=== PATIENT | male | born 1960 | race Hispanic/Latino ===

== ENCOUNTER 2019-10-26 11:36 | Emergency (ER) | payer OTHER ==
[2019-10-26] MEDS ORDERED: ACETAMINOPHEN-CODEINE 300/30MG TAB ONE (12:15)
== END 2019-10-26 13:17 | disposition home or self-care (01) ==
LOC: EDH 11:36
DX: M79.604 Pain in right leg (principal); E11.9 Type 2 diabetes mellitus without complications; I10 Essential (primary) hypertension; E78.00 Pure hypercholesterolemia, unspecified; K21.9 Gastro-esophageal reflux disease without esophagitis
CPT/HCPCS: 29505; 73552; 73562

== ENCOUNTER → 2021-08-20 | Outpatient (CLI) | payer BC ==
[~2021-08-20] MED LIST: ACET-2743 PO; CYCL10TA16 PO; FENO160T16 PO; GABA-529 PO; HYDR12.54 PO; LOSA100T58 PO; METF-444 PO; METO25TA6 PO; NAPR-1023 PO; OMEG-148 PO; OMEP40CA21 PO; SENN-141 PO; SIMV-43 PO; TRAM50TA4 PO; VITA1TAB22 PO
== END | disposition home or self-care (01) ==
LOC: RAH 13:41
PROVIDERS: ATTEND Orthopaedic Surgery Sports Medicine
DX: M17.11 Unilateral primary osteoarthritis, right knee (principal)
CPT/HCPCS: 73700

== ENCOUNTER 2021-08-25 07:30 | Observation (INO) | payer BC ==
[2021-08-22 08:00] VITALS: BP 150/84
[2021-08-22 08:14] LABS: BASOPHILS % (AUTO) 0.7 % (0.0-5.0); EOSINOPHILS % (AUTO) 3.1 % (0.0-8.0); HEMATOCRIT 39.3 % (42-54); LYMPHOCYTES % (AUTO) 21.6 % (21.0-51.0); MEAN CORPUSCULAR HEMOGLOBIN 28.9 pg (27.0-33.0); MEAN CORPUSCULAR HGB CONC 32.3 g/dL (32.0-36.0); MEAN CORPUSCULAR VOLUME 89.3 fL (79-99); MONOCYTES % (AUTO) 11.8 % (3.0-13.0); NEUTROPHILS % (AUTO) 62.3 % (40.0-77.0); PLATELET COUNT (AUTO) 205 K/uL (130-400); WHITE BLOOD COUNT (AUTO) 4.2 K/uL (4.8-10.8)
[2021-08-22 08:16] LABS: APPEARANCE,URINE Clear (CLEAR); BILIRUBIN,URINE Negative (NEGATIVE); COLOR,URINE Yellow (YELLOW); GLUCOSE, URINE (UA) Negative (NEGATIVE); KETONES,URINE Negative (NEGATIVE); LEUKOCYTE ESTERASE ,URINE Negative (NEGATIVE); NITRATE,URINE Negative (NEGATIVE); OCCULT BLOOD,URINE Negative (NEGATIVE); PH,URINE 8.5 (5.0-8.0); PROTEIN,URINE Negative (NEGATIVE); UROBILINOGEN,URINE 0.2 mg/dL (0.2-1.0)
[2021-08-22 08:28] LABS: INR 0.97 (0.85-1.15); PROTHROMBIN TIME 10.6 SEC (9.6-11.6)
[2021-08-25] VITALS (23 sets, daily range): BP systolic 125–181; BP diastolic 59–99
[~2021-08-25] VITALS: Ht 167.6 cm; Wt 79.1 kg
[~2021-08-25 07:30] MED LIST changes: -OMEG-148 PO
[2021-08-25] MEDS ORDERED: CEFAZOLIN SODIUM 1 GM VIAL IVP ONE (08:00)
[2021-08-25] MEDS ORDERED: CEFAZOLIN SODIUM 1 GM VIAL ONE (11:02)
[2021-08-25] MEDS ORDERED: 0.9%NACL 1000ML 1,000 ML IV ONE (11:03)
[2021-08-25] MEDS ORDERED: HYDROMORPHONE 1 MG INJ ONE (13:34)
[2021-08-25] MEDS ORDERED: FAMOTIDINE 20MG VIAL IV ONE (13:34)
[2021-08-25] MEDS ORDERED: GLYCOPYRROLATE 1 MG/5 ML SYRINGE ONE (13:35)
[2021-08-25] MEDS ORDERED: ROCURONIUM 10MG/1ML SYR 10 MG/ML ML ONE (13:36)
[2021-08-25] MEDS ORDERED: PROPOFOL 10 MG/ML 20ML VIAL IV ONE (13:36)
[2021-08-25] MEDS ORDERED: FENTANYL CITRATE PF 50 MCG/1 ML 5ML AMP IV ONE (13:36)
[2021-08-25] MEDS ORDERED: ONDANSETRON 4MG INJ ONE (13:51)
[2021-08-25] MEDS ORDERED: TRANEXAMIC ACID 1000MG/10ML ONE ×2 (13:52→15:59)
[2021-08-25] MEDS ORDERED: VANCOMYCIN 1G VIAL ONE (14:25)
[2021-08-25] MEDS ORDERED: NEOSTIGMINE 5MG/5ML SYR IV ONE (15:44)
[2021-08-25] MEDS ORDERED: MEPERIDINE-PF 25 MG/ML SYG ONE ×2 (16:09→16:31)
[2021-08-25] MEDS: INSULIN HUMULIN R 100 UNIT/ML 3ML SQ SCH ×2 (16:30→20:38)
[2021-08-25] MEDS ORDERED: KCL 20 MEQ ERTAB PO PRN (16:30)
[2021-08-25] MEDS ORDERED: HYDROCODONE/ACETAMINOPHEN 5/325 MG TAB PO PRN (16:30)
[2021-08-25] MEDS ORDERED: LIDOCAINE HCL-MPF 1% 2ML VIAL IV PRN (16:30)
[2021-08-25] MEDS ORDERED: POTASSIUM CHLORIDE 20MEQ/100ML 100 ML IV PRN (16:30)
[2021-08-25] MEDS ORDERED: POTASSIUM CHLORIDE 10% ELIXIR 20 MEQ/15 ML UDCUP PO PRN (16:30)
[2021-08-25] MEDS ORDERED: ONDANSETRON 4MG INJ IVP PRN (16:30)
[2021-08-25] MEDS: TRAMADOL HCL 50 MG TABLET PO SCH (17:28)
[2021-08-25] MEDS: ACETAMINOPHEN 500 MG TABLET PO SCH ×2 (17:28→19:39)
[2021-08-25] MEDS: MORPHINE 4 MG SYG IVP PRN ×2 (17:28→22:08)
[2021-08-25] MEDS ORDERED: OMEG-148 PO (20:14)
[2021-08-25] MEDS: HYDROCODONE/ACETAMINOPHEN 10/325 MG TAB PO PRN (20:35)
[2021-08-25] MEDS: CELECOXIB 200 MG CAP PO SCH (20:35)
[2021-08-25] MEDS: SIMVASTATIN 20 MG TABLET PO SCH (20:36)
[2021-08-25] MEDS: FAMOTIDINE 20MG TAB PO SCH (20:36)
[2021-08-25] MEDS: FISH OIL 1000 MG/CAP PO SCH (20:36)
[2021-08-25] MEDS: GABAPENTIN 100 MG CAPSULE PO SCH (20:36)
[2021-08-25] MEDS ORDERED: CEFAZOLIN SODIUM 1 GM VIAL IVP SCH (21:30)
[2021-08-26] MEDS: ACETAMINOPHEN 500 MG TABLET PO SCH ×3 (00:32→17:38)
[2021-08-26] MEDS: TRAMADOL HCL 50 MG TABLET PO SCH ×4 (00:33→17:39)
[2021-08-26] MEDS: HYDROCODONE/ACETAMINOPHEN 10/325 MG TAB PO PRN ×3 (02:16→12:20)
[2021-08-26 03:35] LABS: HEMATOCRIT 35.3 % (42-54); MEAN CORPUSCULAR HEMOGLOBIN 28.6 pg (27.0-33.0); MEAN CORPUSCULAR VOLUME 89.4 fL (79-99); RED BLOOD CELL COUNT(AUTO) 3.95 MIL/uL (4.50-6.20); WHITE BLOOD COUNT (AUTO) 8.9 K/uL (4.8-10.8)
[2021-08-26 04:01] LABS: CREATININE 1.1 mg/dL (0.5-1.5); POTASSIUM 4.3 mmol/L (3.5-5.1)
[2021-08-26 04:17] VITALS: BP 163/89
[2021-08-26] MEDS: INSULIN HUMULIN R 100 UNIT/ML 3ML SQ SCH ×4 (06:38→21:00)
[2021-08-26 08:21] VITALS: BP 152/96
[2021-08-26] MEDS ORDERED: KETOROLAC 30MG VIAL (30MG/ML) ONE (08:48)
[2021-08-26] MEDS: FISH OIL 1000 MG/CAP PO SCH ×2 (08:55→21:18)
[2021-08-26] MEDS: HYDROCHLOROTHIAZIDE 25 MG TABLET PO SCH (08:55)
[2021-08-26] MEDS: POLYETHYLENE GLYCOL 3350 17 GM POWD.PACK PO SCH (08:55)
[2021-08-26] MEDS: FAMOTIDINE 20MG TAB PO SCH ×2 (08:55→21:18)
[2021-08-26] MEDS: METFORMIN HCL 500 MG TABLET PO SCH ×2 (08:56→17:38)
[2021-08-26] MEDS: CELECOXIB 200 MG CAP PO SCH ×2 (08:56→21:18)
[2021-08-26] MEDS: VITAMIN B COMPLEX 1 CAPSULE PO SCH (08:56)
[2021-08-26] MEDS: METOPROLOL TARTRATE 25 MG TAB PO SCH (08:56)
[2021-08-26] MEDS: PANTOPRAZOLE 40 MG TAB DR PO SCH (08:56)
[2021-08-26] MEDS: LOSARTAN 100 MG TABLET PO SCH (08:56)
[2021-08-26] MEDS ORDERED: KETOROLAC 15MG/ML VIAL (15MG/ML) IV PRN ×2 (09:00)
[2021-08-26] MEDS ORDERED: KETOROLAC 30MG VIAL (30MG/ML) IV PRN (09:00)
[2021-08-26] MEDS: **HM**(Fenofibrate 160 MG PO SCH (09:00)
[2021-08-26] MEDS: PHARMACY COMMUNICATION MISC SCH ×2 (09:30→10:30)
[2021-08-26 10:56] VITALS: BP 131/73
[2021-08-26 16:21] VITALS: BP 128/74
[2021-08-26 20:52] VITALS: BP 128/80
[2021-08-26] MEDS: SIMVASTATIN 20 MG TABLET PO SCH (21:18)
[2021-08-26] MEDS: GABAPENTIN 100 MG CAPSULE PO SCH (21:18)
[2021-08-26 23:31] VITALS: BP 112/65
[2021-08-27] MEDS: ACETAMINOPHEN 500 MG TABLET PO SCH ×3 (00:23→17:08)
[2021-08-27] MEDS: TRAMADOL HCL 50 MG TABLET PO SCH ×4 (00:24→17:39)
[2021-08-27 04:35] VITALS: BP 122/74
[2021-08-27] MEDS: INSULIN HUMULIN R 100 UNIT/ML 3ML SQ SCH ×3 (06:08→16:30)
[2021-08-27 08:00] VITALS: BP 125/74
[2021-08-27] MEDS: **HM**(Fenofibrate 160 MG PO SCH (09:00)
[2021-08-27] MEDS: LOSARTAN 100 MG TABLET PO SCH (09:16)
[2021-08-27] MEDS: CELECOXIB 200 MG CAP PO SCH (09:16)
[2021-08-27] MEDS: VITAMIN B COMPLEX 1 CAPSULE PO SCH (09:16)
[2021-08-27] MEDS: PANTOPRAZOLE 40 MG TAB DR PO SCH (09:17)
[2021-08-27] MEDS: HYDROCHLOROTHIAZIDE 25 MG TABLET PO SCH (09:17)
[2021-08-27] MEDS: FISH OIL 1000 MG/CAP PO SCH (09:17)
[2021-08-27] MEDS: METOPROLOL TARTRATE 25 MG TAB PO SCH (09:17)
[2021-08-27] MEDS: METFORMIN HCL 500 MG TABLET PO SCH ×2 (09:17→17:08)
[2021-08-27] MEDS: FAMOTIDINE 20MG TAB PO SCH (09:17)
[2021-08-27] MEDS: POLYETHYLENE GLYCOL 3350 17 GM POWD.PACK PO SCH (09:18)
[2021-08-27 12:00] VITALS: BP 115/69
[2021-08-27 16:00] VITALS: BP 115/68
[2021-08-28] MEDS ORDERED: BISACODYL 10 MG SUPP.RECT RC PRN (16:30)
== END 2021-08-27 18:00 | disposition home or self-care (01) ==
LOC: DAHIP 09:54 → 4AH 13:06
PROVIDERS: ADMIT Orthopaedic Surgery Sports Medicine; ATTEND Orthopaedic Surgery Sports Medicine
DX: M17.11 Unilateral primary osteoarthritis, right knee (principal); Z20.822 Contact with and (suspected) exposure to COVID-19; I10 Essential (primary) hypertension; E78.00 Pure hypercholesterolemia, unspecified; K21.9 Gastro-esophageal reflux disease without esophagitis; J45.909 Unspecified asthma, uncomplicated; Z79.82 Long term (current) use of aspirin; Z79.899 Other long term (current) drug therapy; Z98.890 Other specified postprocedural states
CPT/HCPCS: 27447; S2900; 36415; 73560; 80048; 81003; 82948; 85025; 85027; 85610; 85730; 86850; 86900; 86901; 87635; 96374; 96375; 96376; 97039; G0378; G0379; J0690; J1170; J1885; J2175; J2270; J2405; J2704; J2710; J3010; J3370; J3490; J7030